=== PATIENT | male | born 1935 | race Hispanic/Latino ===

== ENCOUNTER 2021-02-06 13:48 | Inpatient (IN) | payer MEDICARE ==
[~2021-02-06] VITALS: Ht 167.6 cm; Wt 87.1 kg
[2021-02-06 14:37] LABS: BASOPHILS % (AUTO) 0.3 % (0.0-5.0); EOSINOPHILS % (AUTO) 5.2 % (0.0-8.0); LYMPHOCYTES % (AUTO) 20.8 % (21.0-51.0); MEAN CORPUSCULAR HGB CONC 29.6 g/dL (32.0-36.0); MEAN CORPUSCULAR VOLUME 84.6 fL (79-99); MONOCYTES % (AUTO) 9.6 % (3.0-13.0); NEUTROPHILS % (AUTO) 62.7 % (40.0-77.0); PLATELET COUNT (AUTO) 165 K/uL (130-400); RED BLOOD CELL COUNT(AUTO) 2.72 MIL/uL (4.50-6.20); RED CELL DISTRIBUTION WIDTH 18.2 % (11.0-15.5); WHITE BLOOD COUNT (AUTO) 7.1 K/uL (4.8-10.8)
[2021-02-06 14:57] LABS: BILIRUBIN,TOTAL 0.3 mg/dL (0.2-1.0); TOTAL PROTEIN, SERUM 7.1 g/dL (6.0-8.3)
[2021-02-06 15:02] LABS: B-TYPE NATRIURETIC PEPTIDE 54 pg/mL (0-100)
[2021-02-06 16:14] LABS: APPEARANCE,URINE CLOUDY (CLEAR); BILIRUBIN,URINE NEGATIVE (NEGATIVE); COLOR,URINE YELLOW (YELLOW); GLUCOSE, URINE (UA) NEGATIVE (NEGATIVE); KETONES,URINE NEGATIVE (NEGATIVE); LEUKOCYTE ESTERASE ,URINE LARGE (NEGATIVE); NITRATE,URINE POSITIVE (NEGATIVE); OCCULT BLOOD,URINE MODERATE (NEGATIVE); PROTEIN,URINE TRACE mg/dL (NEGATIVE); UROBILINOGEN,URINE 0.2 mg/dL (0.2-1.0)
[2021-02-06 16:31] LABS: BACTERIA,URINE Few /HPF (None Seen); SQUAMOUS EPITHELIAL CELL,UR Few /HPF (0-2); WBC,URINE >100 /HPF (0-1)
[2021-02-06] MEDS ORDERED: POTASSIUM BICARB/CIT AC 25 MEQ TABLET.EFF PO ONE (17:00)
[2021-02-06] MEDS ORDERED: VANCOMYCIN KIT 1 GM/250 ML IV.KIT IV ONE (17:00)
[2021-02-06] MEDS ORDERED: ZOSYN 3.375GM +NS 50ML IV SCH (17:00)
[2021-02-06] MEDS ORDERED: HYDROMORPHONE 0.5 MG SYG (0.5MG/0.5ML) IVP PRN (18:00)
[2021-02-06] MEDS ORDERED: ACETAMINOPHEN 325 MG TAB PO PRN (18:00)
[2021-02-06] MEDS ORDERED: ONDANSETRON 4MG INJ IVP PRN (18:00)
[2021-02-06] MEDS ORDERED: VANCOMYCIN PROTOCOL PER PHARMACY IV SCH (18:00)
[2021-02-06] MEDS: 1/2 NS 1000ML 1,000 ML IV SCH (18:39)
[2021-02-06] MEDS ORDERED: VANCOMYCIN 1G/250ML KIT 250 ML IV ONE (20:06)
[2021-02-06] MEDS: ZOSYN 3.375GM +NS 50ML IV SCH (20:21)
[2021-02-06] MEDS ORDERED: VANCOMYCIN 1G VIAL IVPB SCH (21:00)
[2021-02-07] MEDS: ZOSYN 3.375GM +NS 50ML IV SCH ×3 (03:19→18:02)
[2021-02-07 06:31] LABS: BASOPHILS % (AUTO) 0.4 % (0.0-5.0); EOSINOPHILS % (AUTO) 4.5 % (0.0-8.0); HEMATOCRIT 23.3 % (42-54); LYMPHOCYTES % (AUTO) 15.2 % (21.0-51.0); MEAN CORPUSCULAR VOLUME 83.2 fL (79-99); MONOCYTES % (AUTO) 6.9 % (3.0-13.0); NEUTROPHILS % (AUTO) 71.4 % (40.0-77.0); PLATELET COUNT (AUTO) 179 K/uL (130-400); RED CELL DISTRIBUTION WIDTH 17.9 % (11.0-15.5); WHITE BLOOD COUNT (AUTO) 6.9 K/uL (4.8-10.8)
[2021-02-07 07:12] LABS: BILIRUBIN,TOTAL 0.4 mg/dL (0.2-1.0); CREATININE 0.7 mg/dL (0.5-1.5); POTASSIUM 3.3 mmol/L (3.5-5.1); TOTAL PROTEIN, SERUM 7.1 g/dL (6.0-8.3)
[2021-02-07] MEDS: 1/2 NS 1000ML 1,000 ML IV SCH ×2 (07:20→20:58)
[2021-02-07] MEDS: VANCOMYCIN 750MG VIAL IVPB SCH ×2 (08:32→20:58)
[2021-02-07] MEDS: ENOXAPARIN SODIUM 40 MG/0.4 ML SYRINGE SQ SCH (09:00)
[2021-02-07 11:00] VITALS: BP 94/61
[2021-02-07] MEDS ORDERED: LIDOCAINE HCL-MPF 1% 2ML VIAL IV PRN (11:30)
[2021-02-07] MEDS: POTASSIUM CHLORIDE 10% ELIXIR 20 MEQ/15 ML UDCUP PO PRN ×3 (12:21→16:07)
[2021-02-07] MEDS: SODIUM HYPOCHLORITE 0.25% [HALF STRENGTH] 473 ML TOPICAL SOLN TP SCH ×2 (15:00→21:08)
[2021-02-07] MEDS: GENTAMICIN 15 GM CREAM TP SCH ×2 (15:00→21:07)
[2021-02-07 16:15] VITALS: BP 164/72
[2021-02-07] MEDS ORDERED: MULT-1192 PO (17:38)
[2021-02-07] MEDS ORDERED: MIDO10TA PO (17:38)
[2021-02-07] MEDS ORDERED: MEGE400O4 PO (17:38)
[2021-02-07] MEDS ORDERED: LEVO50CA4 PO (17:38)
[2021-02-07] MEDS ORDERED: CLOP75TA32 PO (17:38)
[2021-02-07] MEDS ORDERED: POLY17PO4 PO (17:38)
[2021-02-07] MEDS ORDERED: BACL10TA PO (17:38)
[2021-02-07] MEDS ORDERED: TAMS-1 PO (17:38)
[2021-02-07] MEDS ORDERED: [UNRECOGNIZED DRUG - CODE] PO (17:38)
[2021-02-07] MEDS ORDERED: FINA5TAB41 PO (17:38)
[2021-02-07] MEDS ORDERED: FURO20TA4 PO (17:38)
[2021-02-07] MEDS ORDERED: MELA1TAB52 PO (17:38)
[2021-02-07] MEDS ORDERED: GABA-533 PO (17:38)
[2021-02-07] MEDS ORDERED: ASPI-1012 PO (17:38)
[2021-02-07] MEDS ORDERED: ONDA-104 PO (17:38)
[2021-02-07] MEDS ORDERED: ROPI2TAB7 PO (17:38)
[2021-02-07] MEDS ORDERED: ASCO500T10 PO (17:38)
[2021-02-07] MEDS ORDERED: FAMO20TA8 PO (17:38)
[2021-02-07] MEDS ORDERED: ATOR10 PO (17:38)
[2021-02-07] MEDS ORDERED: FERR240T6 PO (17:38)
[2021-02-07 20:00] VITALS: BP 175/90
[2021-02-07] MEDS ORDERED: 0.9% NACL 250ML 250 ML ONE (20:52)
[2021-02-08] VITALS: BP 126/50
[2021-02-08] MEDS: ZOSYN 3.375GM +NS 50ML IV SCH ×3 (02:09→18:49)
[2021-02-08 04:00] VITALS: BP 149/95
[2021-02-08 08:13] LABS: HEMATOCRIT 27.2 % (42-54); MEAN CORPUSCULAR HEMOGLOBIN 24.6 pg (27.0-33.0); MEAN CORPUSCULAR VOLUME 84.7 fL (79-99); RED BLOOD CELL COUNT(AUTO) 3.21 MIL/uL (4.50-6.20); RED CELL DISTRIBUTION WIDTH 17.7 % (11.0-15.5); WHITE BLOOD COUNT (AUTO) 7.1 K/uL (4.8-10.8)
[2021-02-08] MEDS: VANCOMYCIN 750MG VIAL IVPB SCH ×2 (08:22→21:00)
[2021-02-08] MEDS: SODIUM HYPOCHLORITE 0.25% [HALF STRENGTH] 473 ML TOPICAL SOLN TP SCH ×3 (08:23→21:01)
[2021-02-08] MEDS: ENOXAPARIN SODIUM 40 MG/0.4 ML SYRINGE SQ SCH (08:23)
[2021-02-08] MEDS: GENTAMICIN 15 GM CREAM TP SCH ×3 (08:24→21:01)
[2021-02-08 08:27] LABS: BILIRUBIN,TOTAL 0.4 mg/dL (0.2-1.0); CREATININE 0.8 mg/dL (0.5-1.5); POTASSIUM 3.3 mmol/L (3.5-5.1); TOTAL PROTEIN, SERUM 7.2 g/dL (6.0-8.3)
[2021-02-08 08:47] VITALS: BP 127/68
[2021-02-08] MEDS: 1/2 NS 1000ML 1,000 ML IV SCH (10:00)
[2021-02-08 12:32] VITALS: BP 123/84
[2021-02-08] MEDS: KCL 20 MEQ ERTAB PO PRN (15:08)
[2021-02-08 17:11] VITALS: BP 152/68
[2021-02-08 20:24] VITALS: BP 164/77
[2021-02-09] VITALS (7 sets, daily range): BP systolic 132–165; BP diastolic 44–99
[2021-02-09] MEDS: ZOSYN 3.375GM +NS 50ML IV SCH ×3 (02:41→19:33)
[2021-02-09] MEDS: 1/2 NS 1000ML 1,000 ML IV SCH ×2 (04:57→12:45)
[2021-02-09] MEDS: VANCOMYCIN 750MG VIAL IVPB SCH ×2 (09:00→21:13)
[2021-02-09] MEDS: ENOXAPARIN SODIUM 40 MG/0.4 ML SYRINGE SQ SCH (11:31)
[2021-02-09] MEDS: GENTAMICIN 15 GM CREAM TP SCH ×3 (12:15→19:56)
[2021-02-09] MEDS: SODIUM HYPOCHLORITE 0.25% [HALF STRENGTH] 473 ML TOPICAL SOLN TP SCH ×3 (12:15→21:10)
[2021-02-09] MEDS: KCL 20 MEQ ERTAB PO PRN (12:22)
[2021-02-10] MEDS: 1/2 NS 1000ML 1,000 ML IV SCH ×2 (01:08→16:08)
[2021-02-10] MEDS: ZOSYN 3.375GM +NS 50ML IV SCH ×3 (03:51→17:09)
[2021-02-10 04:12] VITALS: BP 137/92
[2021-02-10] MEDS: VANCOMYCIN 750MG VIAL IVPB SCH ×2 (08:08→21:12)
[2021-02-10] MEDS: ENOXAPARIN SODIUM 40 MG/0.4 ML SYRINGE SQ SCH (08:10)
[2021-02-10] MEDS: SODIUM HYPOCHLORITE 0.25% [HALF STRENGTH] 473 ML TOPICAL SOLN TP SCH ×3 (08:10→21:12)
[2021-02-10] MEDS: GENTAMICIN 15 GM CREAM TP SCH ×3 (08:11→21:13)
[2021-02-10 12:00] VITALS: BP 149/102
[2021-02-10 16:52] VITALS: BP 156/82
[2021-02-10 19:59] VITALS: BP 154/81
[2021-02-10 23:54] VITALS: BP 177/77
[2021-02-11 03:45] VITALS: BP 157/68
[2021-02-11] MEDS: 1/2 NS 1000ML 1,000 ML IV SCH ×2 (03:51→18:16)
[2021-02-11] MEDS: ZOSYN 3.375GM +NS 50ML IV SCH ×3 (03:51→18:14)
[2021-02-11] MEDS: VANCOMYCIN 750MG VIAL IVPB SCH ×2 (08:22→22:19)
[2021-02-11] MEDS: GENTAMICIN 15 GM CREAM TP SCH ×3 (08:23→22:20)
[2021-02-11] MEDS: ENOXAPARIN SODIUM 40 MG/0.4 ML SYRINGE SQ SCH (08:23)
[2021-02-11] MEDS: SODIUM HYPOCHLORITE 0.25% [HALF STRENGTH] 473 ML TOPICAL SOLN TP SCH ×3 (08:24→22:20)
[2021-02-11 08:44] VITALS: BP 149/86
[2021-02-11 12:05] VITALS: BP 133/75
[2021-02-11 16:46] VITALS: BP 155/87
[2021-02-11 19:32] VITALS: BP 141/72
[2021-02-11 23:53] VITALS: BP 152/89
[2021-02-12] VITALS (26 sets, daily range): BP systolic 82–177; BP diastolic 50–89
[2021-02-12] MEDS: ZOSYN 3.375GM +NS 50ML IV SCH ×3 (03:03→17:53)
[2021-02-12] MEDS: 1/2 NS 1000ML 1,000 ML IV SCH ×2 (06:09→20:40)
[2021-02-12] MEDS: VANCOMYCIN 750MG VIAL IVPB SCH (07:40)
[2021-02-12] MEDS: ENOXAPARIN SODIUM 40 MG/0.4 ML SYRINGE SQ SCH (07:41)
[2021-02-12] MEDS: SODIUM HYPOCHLORITE 0.25% [HALF STRENGTH] 473 ML TOPICAL SOLN TP SCH ×3 (10:18→21:31)
[2021-02-12] MEDS: GENTAMICIN 15 GM CREAM TP SCH ×3 (10:18→21:31)
[2021-02-12] MEDS ORDERED: LIDOCAINE PF 100MG/5ML (2%) SYRINGE 5ML ONE (13:03)
[2021-02-12] MEDS ORDERED: PROPOFOL 10 MG/ML 20ML VIAL IV ONE (13:04)
[2021-02-12] MEDS ORDERED: MIDAZOLAM HCL 1 MG/ML 2ML VIAL ONE (13:04)
[2021-02-12] MEDS ORDERED: MEPERIDINE-PF 25 MG/ML SYG ONE (13:24)
[2021-02-12] MEDS ORDERED: FENTANYL CITRATE PF 50 MCG/1 ML 2ML VIAL ONE (13:28)
[2021-02-12] MEDS ORDERED: ONDANSETRON 4MG INJ ONE (13:30)
[2021-02-13] VITALS (7 sets, daily range): BP systolic 117–177; BP diastolic 71–85
[2021-02-13] MEDS: ZOSYN 3.375GM +NS 50ML IV SCH ×3 (03:35→19:12)
[2021-02-13] MEDS: ENOXAPARIN SODIUM 40 MG/0.4 ML SYRINGE SQ SCH (09:00)
[2021-02-13] MEDS: VANCOMYCIN 750MG VIAL IVPB SCH ×2 (10:56→21:43)
[2021-02-13] MEDS: GENTAMICIN 15 GM CREAM TP SCH ×3 (10:57→21:44)
[2021-02-13] MEDS: SODIUM HYPOCHLORITE 0.25% [HALF STRENGTH] 473 ML TOPICAL SOLN TP SCH ×3 (10:57→21:00)
[2021-02-13] MEDS ORDERED: 0.9% NACL 250ML 250 ML ONE (21:27)
[2021-02-14 00:06] VITALS: BP 160/83
[2021-02-14] MEDS: ZOSYN 3.375GM +NS 50ML IV SCH ×3 (03:07→18:47)
[2021-02-14 04:53] VITALS: BP 158/80
[2021-02-14 08:00] VITALS: BP 177/61
[2021-02-14] MEDS: VANCOMYCIN 750MG VIAL IVPB SCH ×2 (10:17→20:56)
[2021-02-14] MEDS: ENOXAPARIN SODIUM 40 MG/0.4 ML SYRINGE SQ SCH (10:20)
[2021-02-14] MEDS: SODIUM HYPOCHLORITE 0.25% [HALF STRENGTH] 473 ML TOPICAL SOLN TP SCH ×3 (10:23→20:58)
[2021-02-14] MEDS: GENTAMICIN 15 GM CREAM TP SCH ×3 (10:23→20:59)
[2021-02-14 12:20] VITALS: BP 127/55
[2021-02-14] MEDS: 1/2 NS 1000ML 1,000 ML IV SCH (12:40)
[2021-02-14 16:06] VITALS: BP 105/54
[2021-02-14 19:51] VITALS: BP 116/56
[2021-02-15] VITALS (7 sets, daily range): BP systolic 107–182; BP diastolic 56–99
[2021-02-15] MEDS: ZOSYN 3.375GM +NS 50ML IV SCH ×3 (01:34→17:39)
[2021-02-15] MEDS: 1/2 NS 1000ML 1,000 ML IV SCH ×2 (01:34→15:34)
[2021-02-15 04:50] LABS: HEMATOCRIT 24.5 % (42-54); MEAN CORPUSCULAR HEMOGLOBIN 24.7 pg (27.0-33.0); MEAN CORPUSCULAR HGB CONC 29.4 g/dL (32.0-36.0); MEAN CORPUSCULAR VOLUME 83.9 fL (79-99); PLATELET COUNT (AUTO) 135 K/uL (130-400); RED BLOOD CELL COUNT(AUTO) 2.92 MIL/uL (4.50-6.20); RED CELL DISTRIBUTION WIDTH 17.5 % (11.0-15.5); WHITE BLOOD COUNT (AUTO) 5.4 K/uL (4.8-10.8)
[2021-02-15 05:06] LABS: ALBUMIN 1.7 g/dL (3.5-5.0); BILIRUBIN,TOTAL 0.3 mg/dL (0.2-1.0); CREATININE 0.7 mg/dL (0.5-1.5); TOTAL PROTEIN, SERUM 6.1 g/dL (6.0-8.3)
[2021-02-15 05:22] LABS: PLATELET MORPHOLOGY LARGE PLTS PRESENT
[2021-02-15 05:24] LABS: POTASSIUM 2.3 mmol/L (3.5-5.1)
[2021-02-15] MEDS: POTASSIUM CHLORIDE 20MEQ/100ML 100 ML IV PRN ×2 (05:31→15:34)
[2021-02-15] MEDS: VANCOMYCIN 750MG VIAL IVPB SCH ×2 (09:54→20:49)
[2021-02-15] MEDS: ENOXAPARIN SODIUM 40 MG/0.4 ML SYRINGE SQ SCH (09:55)
[2021-02-15] MEDS: POTASSIUM CHLORIDE 10% ELIXIR 20 MEQ/15 ML UDCUP PO PRN ×3 (09:57→17:32)
[2021-02-15] MEDS: SODIUM HYPOCHLORITE 0.25% [HALF STRENGTH] 473 ML TOPICAL SOLN TP SCH ×3 (09:58→20:53)
[2021-02-15] MEDS: GENTAMICIN 15 GM CREAM TP SCH ×3 (09:58→20:53)
[2021-02-15] MEDS ORDERED: COMPOUND IV MISC 1 EACH IVSOLN MISC PRN (11:30)
[2021-02-15 11:43] LABS: INR 1.1 (0.85-1.15); PROTHROMBIN TIME 11.9 SEC (9.6-11.6)
[2021-02-15] MEDS: IRON SUCROSE COMPLEX 100 MG in 0.9%NACL 50ML 50 ML IV SCH (12:50)
[2021-02-15] MEDS: KCL 20 MEQ ERTAB PO PRN ×2 (17:50→20:52)
[2021-02-15] MEDS ORDERED: CLONIDINE HCL 0.1 MG TABLET ONE (19:21)
[2021-02-15] MEDS ORDERED: CLONIDINE HCL 0.1 MG TABLET PO ONE (19:45)
[2021-02-15] MEDS ORDERED: 0.9% NACL 250ML 250 ML ONE (20:46)
[2021-02-16] VITALS (8 sets, daily range): BP systolic 103–188; BP diastolic 62–96
[2021-02-16] MEDS: ZOSYN 3.375GM +NS 50ML IV SCH ×3 (02:06→18:30)
[2021-02-16] MEDS: 1/2 NS 1000ML 1,000 ML IV SCH ×2 (04:38→18:13)
[2021-02-16 05:18] LABS: HEMATOCRIT 23.6 % (42-54); MEAN CORPUSCULAR HGB CONC 30.1 g/dL (32.0-36.0); MEAN CORPUSCULAR VOLUME 83.1 fL (79-99); RED BLOOD CELL COUNT(AUTO) 2.84 MIL/uL (4.50-6.20); RED CELL DISTRIBUTION WIDTH 17.9 % (11.0-15.5)
[2021-02-16 05:31] LABS: ALBUMIN 1.8 g/dL (3.5-5.0); BILIRUBIN,TOTAL 0.3 mg/dL (0.2-1.0); CREATININE 0.8 mg/dL (0.5-1.5); POTASSIUM 3.7 mmol/L (3.5-5.1); TOTAL PROTEIN, SERUM 6.2 g/dL (6.0-8.3)
[2021-02-16] MEDS: ENOXAPARIN SODIUM 40 MG/0.4 ML SYRINGE SQ SCH (08:53)
[2021-02-16] MEDS: VANCOMYCIN 750MG VIAL IVPB SCH ×2 (08:59→20:57)
[2021-02-16] MEDS: SODIUM HYPOCHLORITE 0.25% [HALF STRENGTH] 473 ML TOPICAL SOLN TP SCH ×3 (09:00→20:57)
[2021-02-16] MEDS: GENTAMICIN 15 GM CREAM TP SCH ×3 (09:00→20:57)
[2021-02-16] MEDS: IRON SUCROSE COMPLEX 100 MG in 0.9%NACL 50ML 50 ML IV SCH (09:01)
[2021-02-16] MEDS ORDERED: 0.9% NACL 250ML 250 ML ONE (20:35)
[2021-02-17] VITALS (7 sets, daily range): BP systolic 147–172; BP diastolic 61–91
[2021-02-17] MEDS: ZOSYN 3.375GM +NS 50ML IV SCH ×3 (02:21→18:36)
[2021-02-17 04:51] LABS: HEMATOCRIT 24.8 % (42-54); MEAN CORPUSCULAR HEMOGLOBIN 25.3 pg (27.0-33.0); MEAN CORPUSCULAR HGB CONC 29.8 g/dL (32.0-36.0); MEAN CORPUSCULAR VOLUME 84.9 fL (79-99); RED BLOOD CELL COUNT(AUTO) 2.92 MIL/uL (4.50-6.20); RED CELL DISTRIBUTION WIDTH 18.2 % (11.0-15.5); WHITE BLOOD COUNT (AUTO) 4.4 K/uL (4.8-10.8)
[2021-02-17 05:06] LABS: ALBUMIN 1.9 g/dL (3.5-5.0); ASPARTATE AMINOTRANSFERASE 15 U/L (10-37); BILIRUBIN,TOTAL 0.4 mg/dL (0.2-1.0); CARBON DIOXIDE 23 mmol/L (21-32); CHLORIDE 108 mmol/L (101-111); CREATININE 0.7 mg/dL (0.5-1.5); GLOMERULAR FILTR. RATE CALC 114 mL/min (>60); GLUCOSE,RANDOM 101 mg/dL (70-105); SODIUM SERUM 140 mmol/L (136-145); TOTAL PROTEIN, SERUM 6.4 g/dL (6.0-8.3); UREA NITROGEN, BLOOD 6 mg/dL (7-18)
[2021-02-17 05:07] LABS: POTASSIUM 2.9 mmol/L (3.5-5.1)
[2021-02-17 05:14] LABS: ALANINE AMINOTRANSFERASE < 6 U/L (12-78)
[2021-02-17] MEDS: POTASSIUM CHLORIDE 20MEQ/100ML 100 ML IV PRN (05:29)
[2021-02-17] MEDS: 1/2 NS 1000ML 1,000 ML IV SCH ×2 (06:33→18:58)
[2021-02-17] MEDS: IRON SUCROSE COMPLEX 100 MG in 0.9%NACL 50ML 50 ML IV SCH (12:24)
[2021-02-17] MEDS: ENOXAPARIN SODIUM 40 MG/0.4 ML SYRINGE SQ SCH (12:26)
[2021-02-17] MEDS: VANCOMYCIN 750MG VIAL IVPB SCH ×2 (12:26→23:28)
[2021-02-17] MEDS: GENTAMICIN 15 GM CREAM TP SCH ×3 (12:27→21:26)
[2021-02-17] MEDS: SODIUM HYPOCHLORITE 0.25% [HALF STRENGTH] 473 ML TOPICAL SOLN TP SCH ×3 (15:53→21:26)
[2021-02-18] MEDS: ZOSYN 3.375GM +NS 50ML IV SCH ×3 (02:45→15:30)
[2021-02-18 03:24] VITALS: BP 142/67
[2021-02-18] MEDS: POTASSIUM CHLORIDE 20MEQ/100ML 100 ML IV PRN (06:42)
[2021-02-18] MEDS ORDERED: NALOXONE HCL 0.4 MG/1 ML ML IVP SCH (07:30)
[2021-02-18] MEDS ORDERED: 0.9%NACL 1000ML 500 ML IV ONE (07:30)
[2021-02-18] MEDS: VANCOMYCIN 750MG VIAL IVPB SCH ×2 (09:00→22:05)
[2021-02-18 09:08] LABS: MAGNESIUM 1.8 mg/dL (1.80-2.40)
[2021-02-18 09:13] VITALS: BP 145/70
[2021-02-18] MEDS: IRON SUCROSE COMPLEX 100 MG in 0.9%NACL 50ML 50 ML IV SCH (10:40)
[2021-02-18] MEDS: ENOXAPARIN SODIUM 40 MG/0.4 ML SYRINGE SQ SCH (10:41)
[2021-02-18] MEDS: 1/2 NS 1000ML 1,000 ML IV SCH ×2 (10:55→22:05)
[2021-02-18] MEDS: SODIUM HYPOCHLORITE 0.25% [HALF STRENGTH] 473 ML TOPICAL SOLN TP SCH ×3 (10:55→21:00)
[2021-02-18] MEDS: GENTAMICIN 15 GM CREAM TP SCH ×3 (10:55→21:00)
[2021-02-18 11:45] VITALS: BP 138/81
[2021-02-18] MEDS: KCL 20 MEQ ERTAB PO PRN ×3 (15:30→22:04)
[2021-02-18 16:49] VITALS: BP 132/77
[2021-02-18 20:00] VITALS: BP 186/96
[2021-02-19] VITALS: BP 161/89
[2021-02-19] MEDS: ZOSYN 3.375GM +NS 50ML IV SCH ×3 (03:19→18:41)
[2021-02-19 03:55] VITALS: BP 155/90
[2021-02-19 07:58] LABS: HEMATOCRIT 23.6 % (42-54); MEAN CORPUSCULAR HEMOGLOBIN 25.4 pg (27.0-33.0); MEAN CORPUSCULAR HGB CONC 30.1 g/dL (32.0-36.0); MEAN CORPUSCULAR VOLUME 84.3 fL (79-99); RED BLOOD CELL COUNT(AUTO) 2.8 MIL/uL (4.50-6.20); RED CELL DISTRIBUTION WIDTH 18.7 % (11.0-15.5); WHITE BLOOD COUNT (AUTO) 5.1 K/uL (4.8-10.8)
[2021-02-19 08:00] VITALS: BP 116/63
[2021-02-19 08:23] LABS: BILIRUBIN,TOTAL 0.4 mg/dL (0.2-1.0); CREATININE 0.7 mg/dL (0.5-1.5); TOTAL PROTEIN, SERUM 6.3 g/dL (6.0-8.3)
[2021-02-19 08:28] LABS: POTASSIUM 2.9 mmol/L (3.5-5.1)
[2021-02-19] MEDS: VANCOMYCIN 750MG VIAL IVPB SCH ×2 (10:17→21:54)
[2021-02-19] MEDS: SODIUM HYPOCHLORITE 0.25% [HALF STRENGTH] 473 ML TOPICAL SOLN TP SCH ×3 (10:18→21:55)
[2021-02-19] MEDS: ENOXAPARIN SODIUM 40 MG/0.4 ML SYRINGE SQ SCH (10:18)
[2021-02-19] MEDS: GENTAMICIN 15 GM CREAM TP SCH ×3 (10:19→21:56)
[2021-02-19] MEDS: KCL 20 MEQ ERTAB PO PRN ×4 (10:30→19:01)
[2021-02-19 12:00] VITALS: BP 126/74
[2021-02-19] MEDS: POTASSIUM CHLORIDE 20MEQ/100ML 100 ML IV PRN (12:42)
[2021-02-19] MEDS: IRON SUCROSE COMPLEX 100 MG in 0.9%NACL 50ML 50 ML IV SCH (15:24)
[2021-02-19] MEDS: 1/2 NS 1000ML 1,000 ML IV SCH (15:25)
[2021-02-19 16:00] VITALS: BP 168/86
[2021-02-19 20:00] VITALS: BP 150/96
[2021-02-20] VITALS: BP 122/90
[2021-02-20] MEDS: 1/2 NS 1000ML 1,000 ML IV SCH ×2 (01:14→15:20)
[2021-02-20] MEDS: ZOSYN 3.375GM +NS 50ML IV SCH ×2 (01:55→10:22)
[2021-02-20 04:00] VITALS: BP 170/95
[2021-02-20 08:00] VITALS: BP 155/84
[2021-02-20 08:17] LABS: CREATININE 0.7 mg/dL (0.5-1.5); POTASSIUM 3.5 mmol/L (3.5-5.1)
[2021-02-20 08:29] LABS: HEMATOCRIT 24.2 % (42-54); MEAN CORPUSCULAR HEMOGLOBIN 25.1 pg (27.0-33.0); MEAN CORPUSCULAR HGB CONC 29.3 g/dL (32.0-36.0); MEAN CORPUSCULAR VOLUME 85.5 fL (79-99); RED BLOOD CELL COUNT(AUTO) 2.83 MIL/uL (4.50-6.20); RED CELL DISTRIBUTION WIDTH 19.5 % (11.0-15.5); WHITE BLOOD COUNT (AUTO) 5.2 K/uL (4.8-10.8)
[2021-02-20] MEDS: SODIUM HYPOCHLORITE 0.25% [HALF STRENGTH] 473 ML TOPICAL SOLN TP SCH ×3 (10:23→20:00)
[2021-02-20] MEDS: ENOXAPARIN SODIUM 40 MG/0.4 ML SYRINGE SQ SCH (10:23)
[2021-02-20] MEDS: IRON SUCROSE COMPLEX 100 MG in 0.9%NACL 50ML 50 ML IV SCH (10:23)
[2021-02-20] MEDS: GENTAMICIN 15 GM CREAM TP SCH ×3 (10:24→20:00)
[2021-02-20 12:00] VITALS: BP 162/92
[2021-02-20 16:00] VITALS: BP 161/90
[2021-02-20 20:00] VITALS: BP 161/94
[2021-02-21] VITALS: BP_SYST 176; BP_SYST 97; BP_DIAS 52; BP_DIAS 96
[2021-02-21] MEDS: 1/2 NS 1000ML 1,000 ML IV SCH ×2 (01:28→17:01)
[2021-02-21 04:00] VITALS: BP 178/90
[2021-02-21 07:53] VITALS: BP 125/66
[2021-02-21] MEDS ORDERED: MAGNESIUM 2GM PREMIX 50ML 50 ML IV PRN (08:00)
[2021-02-21] MEDS: SODIUM HYPOCHLORITE 0.25% [HALF STRENGTH] 473 ML TOPICAL SOLN TP SCH ×4 (08:30→21:05)
[2021-02-21] MEDS: IRON SUCROSE COMPLEX 100 MG in 0.9%NACL 50ML 50 ML IV SCH (08:55)
[2021-02-21] MEDS: GENTAMICIN 15 GM CREAM TP SCH (08:55)
[2021-02-21] MEDS: VANCOMYCIN 750MG VIAL IVPB SCH ×3 (08:57→21:05)
[2021-02-21] MEDS: LISINOPRIL 5 MG TABLET PO SCH (09:00)
[2021-02-21] MEDS: ENOXAPARIN SODIUM 40 MG/0.4 ML SYRINGE SQ SCH (09:00)
[2021-02-21 12:00] VITALS: BP 147/63
[2021-02-21 16:00] VITALS: BP 129/64
[2021-02-21 20:24] VITALS: BP 134/81
[2021-02-22 00:13] VITALS: BP 165/83
[2021-02-22] MEDS: 1/2 NS 1000ML 1,000 ML IV SCH ×2 (02:34→21:29)
[2021-02-22 04:39] VITALS: BP 159/89
[2021-02-22 07:41] VITALS: BP 175/94
[2021-02-22] MEDS: SODIUM HYPOCHLORITE 0.25% [HALF STRENGTH] 473 ML TOPICAL SOLN TP SCH ×2 (09:00→21:00)
[2021-02-22] MEDS: LISINOPRIL 5 MG TABLET PO SCH (09:00)
[2021-02-22] MEDS: ENOXAPARIN SODIUM 40 MG/0.4 ML SYRINGE SQ SCH (09:00)
[2021-02-22] MEDS: VANCOMYCIN 750MG VIAL IVPB SCH ×2 (10:08→21:28)
[2021-02-22] MEDS: IRON SUCROSE COMPLEX 100 MG in 0.9%NACL 50ML 50 ML IV SCH (10:08)
[2021-02-22 10:14] LABS: BASOPHILS % (AUTO) 0.9 % (0.0-5.0); EOSINOPHILS % (AUTO) 12.4 % (0.0-8.0); HEMATOCRIT 23.6 % (42-54); LYMPHOCYTES % (AUTO) 25.8 % (21.0-51.0); MEAN CORPUSCULAR HEMOGLOBIN 25.3 pg (27.0-33.0); MEAN CORPUSCULAR HGB CONC 28.4 g/dL (32.0-36.0); MEAN CORPUSCULAR VOLUME 89.1 fL (79-99); MONOCYTES % (AUTO) 11.5 % (3.0-13.0); NEUTROPHILS % (AUTO) 48.7 % (40.0-77.0); PLATELET COUNT (AUTO) 113 K/uL (130-400); RED BLOOD CELL COUNT(AUTO) 2.65 MIL/uL (4.50-6.20); WHITE BLOOD COUNT (AUTO) 4.3 K/uL (4.8-10.8)
[2021-02-22] MEDS ORDERED: 0.9% NACL 250ML 250 ML ONE (10:55)
[2021-02-22 11:45] VITALS: BP 157/96
[2021-02-22] MEDS ORDERED: [UNRECOGNIZED DRUG - MIXTURE] TP SCH ×2 (13:09)
[2021-02-22 16:05] VITALS: BP 178/101
[2021-02-22 20:00] VITALS: BP 162/79
[2021-02-23] VITALS (7 sets, daily range): BP systolic 150–195; BP diastolic 69–113
[2021-02-23 08:46] LABS: EOSINOPHILS % (AUTO) 11.6 % (0.0-8.0); HEMATOCRIT 29.1 % (42-54); LYMPHOCYTES % (AUTO) 29.6 % (21.0-51.0); MEAN CORPUSCULAR HEMOGLOBIN 26.7 pg (27.0-33.0); MEAN CORPUSCULAR HGB CONC 30.2 g/dL (32.0-36.0); MEAN CORPUSCULAR VOLUME 88.2 fL (79-99); MONOCYTES % (AUTO) 11.4 % (3.0-13.0); NEUTROPHILS % (AUTO) 45.4 % (40.0-77.0); PLATELET COUNT (AUTO) 139 K/uL (130-400); RED CELL DISTRIBUTION WIDTH 19.4 % (11.0-15.5); WHITE BLOOD COUNT (AUTO) 4.9 K/uL (4.8-10.8)
[2021-02-23] MEDS: VANCOMYCIN 750MG VIAL IVPB SCH (09:00)
[2021-02-23] MEDS: SODIUM HYPOCHLORITE 0.25% [HALF STRENGTH] 473 ML TOPICAL SOLN TP SCH (09:00)
[2021-02-23 09:44] LABS: CREATININE 0.8 mg/dL (0.5-1.5)
[2021-02-23 09:48] LABS: POTASSIUM 2.7 mmol/L (3.5-5.1)
[2021-02-23] MEDS: LISINOPRIL 5 MG TABLET PO SCH (10:28)
[2021-02-23] MEDS: 1/2 NS 1000ML 1,000 ML IV SCH (10:29)
[2021-02-23] MEDS: SODIUM HYPOCHLORITE TP SCH ×2 (10:29)
[2021-02-23] MEDS: WATER TP SCH ×2 (10:29)
[2021-02-23] MEDS: IRON SUCROSE COMPLEX 100 MG in 0.9%NACL 50ML 50 ML IV SCH (10:31)
[2021-02-23] MEDS: POTASSIUM CHLORIDE 20MEQ/100ML 100 ML IV PRN (10:36)
[2021-02-23] MEDS: ENOXAPARIN SODIUM 40 MG/0.4 ML SYRINGE SQ SCH (11:11)
[2021-02-23] MEDS: GENTAMICIN 15 GM CREAM TP SCH (21:00)
[2021-02-24] VITALS: BP_SYST 155; BP_SYST 191; BP_DIAS 69; BP_DIAS 81
[2021-02-24] MEDS: SODIUM HYPOCHLORITE 0.25% [HALF STRENGTH] 473 ML TOPICAL SOLN TP SCH ×3 (00:01→20:47)
[2021-02-24] MEDS: 1/2 NS 1000ML 1,000 ML IV SCH ×2 (00:01→12:40)
[2021-02-24 04:00] VITALS: BP 141/78
[2021-02-24 07:57] LABS: HEMATOCRIT 28.9 % (42-54); MEAN CORPUSCULAR HGB CONC 30.4 g/dL (32.0-36.0); MEAN CORPUSCULAR VOLUME 88.7 fL (79-99); PLATELET COUNT (AUTO) 142 K/uL (130-400); RED BLOOD CELL COUNT(AUTO) 3.26 MIL/uL (4.50-6.20); RED CELL DISTRIBUTION WIDTH 19.6 % (11.0-15.5); WHITE BLOOD COUNT (AUTO) 4.7 K/uL (4.8-10.8)
[2021-02-24 08:00] VITALS: BP 173/86
[2021-02-24 08:13] LABS: CREATININE 0.6 mg/dL (0.5-1.5); PHOSPHORUS 2.7 mg/dL (2.5-4.9)
[2021-02-24 08:17] LABS: POTASSIUM 2.6 mmol/L (3.5-5.1)
[2021-02-24] MEDS: POTASSIUM CHLORIDE 20MEQ/100ML 100 ML IV PRN ×2 (08:41→17:56)
[2021-02-24] MEDS: LISINOPRIL 5 MG TABLET PO SCH (08:41)
[2021-02-24] MEDS: IRON SUCROSE COMPLEX 100 MG in 0.9%NACL 50ML 50 ML IV SCH (08:42)
[2021-02-24] MEDS: ENOXAPARIN SODIUM 40 MG/0.4 ML SYRINGE SQ SCH (08:42)
[2021-02-24] MEDS: GENTAMICIN 15 GM CREAM TP SCH ×2 (09:03→20:46)
[2021-02-24 10:22] LABS: BASOPHILS % (MANUAL) 3 % (0-2); EOSINOPHILS % (MANUAL) 10 % (1-6); LYMPHOCYTES % (MANUAL) 31 % (22-44); MAN.DIFF COMMENT-IMPRESSION MANUAL DIFFERENTIAL; MONOCYTES % (MANUAL) 9 % (2-9); PLATELET MORPHOLOGY COMMENT ADEQUATE; SEGMENTED NEUTROPHILS % 47 % (40-70)
[2021-02-24] MEDS: WATER TP SCH ×2 (11:15)
[2021-02-24] MEDS: SODIUM HYPOCHLORITE TP SCH ×2 (11:15)
[2021-02-24 12:00] VITALS: BP 166/79
[2021-02-24] MEDS ORDERED: 0.9% NACL 250ML 250 ML IV SCH (14:00)
[2021-02-24] MEDS: VANCOMYCIN KIT 1 GM/250 ML IV.KIT IV SCH (15:51)
[2021-02-24 16:00] VITALS: BP 178/110
[2021-02-24 20:00] VITALS: BP 186/93
[2021-02-25] VITALS (23 sets, daily range): BP systolic 91–206; BP diastolic 49–159
[2021-02-25] MEDS: 1/2 NS 1000ML 1,000 ML IV SCH ×2 (02:00→15:20)
[2021-02-25 07:25] LABS: CREATININE 0.7 mg/dL (0.5-1.5)
[2021-02-25] MEDS: ENOXAPARIN SODIUM 40 MG/0.4 ML SYRINGE SQ SCH (09:00)
[2021-02-25] MEDS: SODIUM HYPOCHLORITE TP SCH ×2 (09:00)
[2021-02-25] MEDS: WATER TP SCH ×2 (09:00)
[2021-02-25] MEDS: SODIUM HYPOCHLORITE 0.25% [HALF STRENGTH] 473 ML TOPICAL SOLN TP SCH (09:00)
[2021-02-25] MEDS: LISINOPRIL 5 MG TABLET PO SCH (09:00)
[2021-02-25] MEDS: IRON SUCROSE COMPLEX 100 MG in 0.9%NACL 50ML 50 ML IV SCH (09:44)
[2021-02-25] MEDS: GENTAMICIN 15 GM CREAM TP SCH ×2 (09:44→21:00)
[2021-02-25] MEDS ORDERED: 0.9%NACL 1000ML 1,000 ML IV ONE (10:20)
[2021-02-25] MEDS ORDERED: ROCURONIUM BROMIDE 10MG/1ML 5ML VL ONE (10:55)
[2021-02-25] MEDS ORDERED: PROPOFOL 10 MG/ML 20ML VIAL IV ONE (10:55)
[2021-02-25] MEDS ORDERED: LIDOCAINE PF 100MG/5ML (2%) SYRINGE 5ML ONE (10:55)
[2021-02-25] MEDS ORDERED: FENTANYL CITRATE PF 50 MCG/1 ML 2ML VIAL ONE (10:55)
[2021-02-25] MEDS ORDERED: SUCCINYLCHOLINE 200MG/10ML SYR ONE (10:55)
[2021-02-25] MEDS ORDERED: GLYCOPYRROLATE 1 MG/5 ML SYRINGE ONE (11:53)
[2021-02-25] MEDS ORDERED: NEOSTIGMINE 5MG/5ML SYR IV ONE (11:54)
[2021-02-25] MEDS ORDERED: KETOROLAC 30MG VIAL (30MG/ML) ONE (12:13)
[2021-02-25] MEDS ORDERED: MEPERIDINE-PF 25 MG/ML SYG ONE (12:26)
[2021-02-25] MEDS ORDERED: ONDANSETRON 4MG INJ ONE (12:27)
[2021-02-25] MEDS ORDERED: HYDRALAZINE 20MG/ML VIAL ONE (12:37)
[2021-02-25] MEDS ORDERED: SUGAMMADEX SODIUM 200 MG/2 ML VIAL IV ONE (12:41)
[2021-02-25] MEDS ORDERED: IPRATROPIUM/ALBUTEROL SULFATE 3 ML SOLUTION IH ONE (12:49)
[2021-02-25] MEDS: KCL 20 MEQ ERTAB PO PRN ×2 (14:17→16:56)
[2021-02-25] MEDS: VANCOMYCIN KIT 1 GM/250 ML IV.KIT IV SCH (14:17)
[2021-02-25] MEDS: SODIUM HYPOCHLORITE 0.125% 473 ML SOLUTION TP SCH (21:00)
[2021-02-26 03:41] VITALS: BP 159/89
[2021-02-26] MEDS: 1/2 NS 1000ML 1,000 ML IV SCH ×2 (04:50→17:29)
[2021-02-26 04:56] LABS: HEMATOCRIT 30.9 % (42-54); MEAN CORPUSCULAR HEMOGLOBIN 27.1 pg (27.0-33.0); MEAN CORPUSCULAR HGB CONC 30.1 g/dL (32.0-36.0); MEAN CORPUSCULAR VOLUME 90.1 fL (79-99); RED BLOOD CELL COUNT(AUTO) 3.43 MIL/uL (4.50-6.20); RED CELL DISTRIBUTION WIDTH 20.3 % (11.0-15.5); WHITE BLOOD COUNT (AUTO) 7.2 K/uL (4.8-10.8)
[2021-02-26 05:29] LABS: CREATININE 0.9 mg/dL (0.5-1.5); POTASSIUM 4.1 mmol/L (3.5-5.1)
[2021-02-26 08:00] VITALS: BP 185/88
[2021-02-26] MEDS ORDERED: ALTEPLASE 2MG VIAL 2 MG/VIAL VIAL IVCATH SCH (08:30)
[2021-02-26] MEDS: IRON SUCROSE COMPLEX 100 MG in 0.9%NACL 50ML 50 ML IV SCH (08:35)
[2021-02-26] MEDS: LISINOPRIL 5 MG TABLET PO SCH (08:35)
[2021-02-26] MEDS: GENTAMICIN 15 GM CREAM TP SCH ×2 (08:36→21:37)
[2021-02-26] MEDS: ENOXAPARIN SODIUM 40 MG/0.4 ML SYRINGE SQ SCH (08:36)
[2021-02-26] MEDS: SODIUM HYPOCHLORITE 0.125% 473 ML SOLUTION TP SCH ×2 (08:36→21:37)
[2021-02-26 11:42] VITALS: BP 140/65
[2021-02-26 16:08] VITALS: BP_SYST 133; BP_SYST 173; BP_DIAS 74; BP_DIAS 82
[2021-02-26] MEDS: 0.9% NACL 250ML 250 ML IV SCH (17:29)
[2021-02-26] MEDS: VANCOMYCIN KIT 1 GM/250 ML IV.KIT IV SCH (17:29)
[2021-02-26 20:20] VITALS: BP 115/119
[2021-02-27 00:17] VITALS: BP 154/104
[2021-02-27 04:00] VITALS: BP 160/89
[2021-02-27 08:00] VITALS: BP 140/89
[2021-02-27] MEDS: AMOX/CLAV 500/125MG TAB PO SCH ×2 (10:39→20:40)
[2021-02-27] MEDS: LISINOPRIL 5 MG TABLET PO SCH (10:39)
[2021-02-27] MEDS: ENOXAPARIN SODIUM 40 MG/0.4 ML SYRINGE SQ SCH (10:40)
[2021-02-27] MEDS: SODIUM HYPOCHLORITE 0.125% 473 ML SOLUTION TP SCH (10:41)
[2021-02-27] MEDS: IRON SUCROSE COMPLEX 100 MG in 0.9%NACL 50ML 50 ML IV SCH (10:41)
[2021-02-27] MEDS: GENTAMICIN 15 GM CREAM TP SCH (10:46)
[2021-02-27 11:33] VITALS: BP 131/53
[2021-02-27 16:18] VITALS: BP 152/92
[2021-02-27 20:00] VITALS: BP 192/96
[2021-02-27] MEDS: VANCOMYCIN KIT 1 GM/250 ML IV.KIT IV SCH (20:41)
[2021-02-27] MEDS: 0.9% NACL 250ML 250 ML IV SCH (20:41)
[2021-03-28] MEDS ORDERED: LISI5TAB21 PO (14:29)
[2021-03-28] MEDS ORDERED: GENT3.5O6 OP (14:29)
[2021-03-28] MEDS ORDERED: FERR-72 PO (14:29)
[2021-03-28] MEDS ORDERED: VANC1FZ IV (14:29)
== END 2021-02-27 22:12 | DRG 853 ==
LOC: EDH 13:48 → EDHIP 17:47 → 3CH 02-07 09:22 → 4DH 02-07 23:25 → 3DH 02-12 11:43
PROVIDERS: ADMIT Internal Medicine; ATTEND Internal Medicine
PROC: 05HY33Z Insertion of Infusion Device into Upper Vein, Percutaneous Approach (ICD-10-PCS; 2021-02-06)
PROC: 30233N1 Transfusion of Nonautologous Red Blood Cells into Peripheral Vein, Percutaneous Approach (ICD-10-PCS; 2021-02-08)
PROC: 0JB90ZZ Excision of Buttock Subcutaneous Tissue and Fascia, Open Approach (ICD-10-PCS; principal; 2021-02-12 13:18)
PROC: 0D1N4Z4 Bypass Sigmoid Colon to Cutaneous, Percutaneous Endoscopic Approach (ICD-10-PCS; 2021-02-25)
DX: A41.9 Sepsis, unspecified organism (principal); L89.154 Pressure ulcer of sacral region, stage 4; L89.624 Pressure ulcer of left heel, stage 4; R53.2 Functional quadriplegia; L89.324 Pressure ulcer of left buttock, stage 4; E46 Unspecified protein-calorie malnutrition; D64.9 Anemia, unspecified; E87.6 Hypokalemia; F02.80 Dementia in other diseases classified elsewhere, unspecified severity, without behavioral disturbance, psychotic disturbance, mood disturbance, and anxiety; Z20.822 Contact with and (suspected) exposure to COVID-19; G20 Parkinson's disease; I25.10 Atherosclerotic heart disease of native coronary artery without angina pectoris; I44.1 Atrioventricular block, second degree; R73.9 Hyperglycemia, unspecified; I10 Essential (primary) hypertension; E03.9 Hypothyroidism, unspecified; E78.00 Pure hypercholesterolemia, unspecified; N40.0 Benign prostatic hyperplasia without lower urinary tract symptoms; Z68.31 Body mass index [BMI] 31.0-31.9, adult; Z51.5 Encounter for palliative care; Z74.01 Bed confinement status; Z90.49 Acquired absence of other specified parts of digestive tract; Z86.73 Personal history of transient ischemic attack (TIA), and cerebral infarction without residual deficits
CPT/HCPCS: 36415; 36430; 71045; 80048; 80053; 80202; 81001; 82270; 82550; 82948; 83605; 83735; 83880; 84100; 84132; 84145; 84484; 85025; 85027; 85610; 86850; 86900; 86901; 86923; 87040; 87077; 87088; 87186; 87635; 93005; 93306; 94640; 97039; A4606; A5061; C1894; G0378; J0330; J0360; J1650; J1756; J1885; J2001; J2175; J2250; J2405; J2543; J2704; J2710; J2997; J3010; J3370; J3480; J3490; J7030; J7050; P9016